=== PATIENT | male | born 1980 | race Caucasian/White ===

== ENCOUNTER 2025-03-27 13:26 | Emergency (ER) | payer SELFPAY ==
[2025-03-27 13:29] VITALS: BP 166/110
--- NOTE | 2025-03-27 15:55 | ED.GENMED ---
History of Present Illness
General
Chief Complaint: Crisis Evaluation
Time Seen by Provider: 03/27/25 14:12
History of Present Illness
History of Present Illness:
44-year-old male with history of depression and hypertension presenting to the emergency department for suicidal ideations. Patient reports for the past few days he has had increasing depressive thoughts, thought about jumping off of a bridge or
lying on the train track to hurt himself. He notes that he has not taken his medications for the past few days including his blood pressure medications. He is on valsartan. Does admit to alcohol abuse, denies drinking today. Denies medical
complaint such as chest pain, difficulty breathing, abdominal pain, headache, visual changes. Denies additional acute medical complaints
Phy Exam
Physical Exam
Physical Exam:
General: Well-appearing, no clinical signs of dehydration, nontoxic and in no acute distress
HEENT: protecting airway
Neck: appears supple
CV: Normal heart rate
Resp: No accessory muscle use, no increased work of breathing
Abd: No distention
Extremities: No deformities, no swelling
Neuro: alert, no focal neurologic deficit
: deferred
Rectal: deferred
Psych: Normal affect
Skin: Intact
Course
Orders/Labs/Results
Orders:
Orders
03/27/25 13:27
1:1 Observation - Suicide/ Violent Behavior As Directed
Crisis Consult Urgent
Reason for Consult: SI
03/27/25 15:40
Ondansetron HCl [Zofran] 4 mg PO NOW STA
Valsartan [Diovan] 80 mg PO NOW STA
03/27/25 16:19
Alcohol Urgent
Basic Metabolic Panel Urgent
Complete Blood Count/With Diff Urgent
Fentanyl, Urine Urgent
Urine Drug Abuse Screen Urgent
Date Specimen was Collected: 03/27/25
Time Specimen was Collected: 15:50
03/27/25 19:02
observation [ED Special Safety Observation] ONCE
Observation level: One to Two
03/27/25 19:41
Lorazepam [Ativan] 1 mg PO NOW STA
03/27/25 19:42
Nicotine Polacrilex [Nicorette] 2 mg PO ONCE ONE
Abnormal Lab Results
03/27/25
16:19
MCV 94.7 H fL
(80.0-94.0)
MCH 32.8 H pg
(27.0-31.0)
Absolute Monos (auto) 0.9 H 10^3/uL
(0.1-0.6)
Monocytes % 9.6 H %
(1.7-9.3)
BUN 8 L mg/dl
(9-20)
U Benzodiazepines Scrn Positive H
(Negative)
U Marijuana (THC) Screen Positive H
(Negative)
03/27/25 16:19
03/27/25 16:19
Vital Signs
Initial and Last Documented VS:
Initial Vital Signs
Temp Pulse Resp BP Pulse Ox
98.4 F 103 22 166/110 98
03/27/25 13:29 03/27/25 13:29 03/27/25 13:29 03/27/25 13:29 03/27/25 13:29
Last Documented Vital Signs
Temp Pulse Resp BP Pulse Ox
98.5 F 77 20 111/82 97
03/27/25 16:03 03/27/25 16:09 03/27/25 16:03 03/27/25 16:09 03/27/25 16:03
MDM/Problems Addressed
MDM/Problems Addressed:
44-year-old male with history of depression, alcoholism, homelessness presenting for suicidal ideations. Vital signs significant for high blood pressure, however patient notes that he has been taking his blood pressure medications.
On exam patient resting comfortably, no acute distress. Patient is admitted to suicidal ideations. However, is looking for help, agreeable. Plan for 201 status. Plan for crisis evaluation. Suspect hypertension from medication noncompliance.
Plan for laboratory analysis. Will administer valsartan.
15:30 -Per crisis, recommending inpatient placement, initiating bed search
20:30 -patient accepted to [facility]. Transportation en route
*Critical Care Note
Total Time (30-74mins, 75-104mins- exclusive of procedures): Not Applicable
ED Attending Note
-
Portions of this chart may have been created with voice recognition software.� Occasional wrong word or��sound alike� substitutions may have occurred due to the inherent limitations of voice recognition software.
Discharge Plan
Departure
Patient Disposition: Psych Facility
Date of Disposition: 03/27/25
Time of Disposition: 19:42
Patient with high blood pressure during this ER visit?: Yes
Condition: Good
Discharge Problem:
Depression with suicidal ideation
Prescriptions:
No Action
venlafaxine [Effexor XR] 150 mg Capsule,Extended Release 24hr
150 mg PO DAILY
valsartan 80 mg Tablet
80 mg PO DAILY
gabapentin 100 mg Capsule
100 mg PO DAILY
Referrals:
Pepe Ochoa MD [Family Provider] -
Interventions
Interventions:
*Risk Screen - Suicide Last Done: 03/27/25 13:27
*General Assessment Last Done: 03/27/25 13:29
*Neglect/Abuse Screening Last Done: 03/27/25 13:29
*ED- Fall Risk Assessment Last Done: 03/27/25 16:03
*ED COVID-19 Vaccine History Last Done: 03/27/25 16:03
ED-Psychological Assessment Last Done: 03/27/25 16:03
Discharge Date and Time
Print Language: GEORGIAN
[2025-03-27 16:03] VITALS: BP 111/81; BMI 41.6
[2025-03-27] MEDS: ZOFRAN 4 MG PO (16:09)
[2025-03-27] MEDS: DIOVAN 80 MG PO (16:09)
[2025-03-27 16:51] LABS: Alcohol None Detected; Blood Urea Nitrogen 8 mg/dl (9-20); Calcium 9.5 mg/dl (8.4-10.2); Carbon Dioxide 25 mmol/L (22-30); Chloride 105 mmol/L (98-107); Estimated Creatinine Clearance > 125 ml/min; Glucose 94 mg/dl (70-99); Sodium 140 mmol/L (135-145); eGFR > 60.00
[2025-03-27 19:30] LABS: Amphetamines Negative (Negative); Barbiturates Negative (Negative); Benzodiazepines Positive (Negative); Buprenorphine Negative (Negative); Cocaine Negative (Negative); Marijuana Positive (Negative); Methadone Negative (Negative); Methamphetamines Negative (Negative); Opiates Negative (Negative); Phencyclidine Negative (Negative); Tricyclic Antidepressants Negative (Negative)
[2025-03-27 19:41] LABS: % Basophils 1.3 % (0-2); % Eosinophils 2.4 % (0-6); % Immature Granulocytes 0.2 % (0-0.5); % Lymphocytes 36.9 % (20.5-51.1); % Monocytes 9.6 % (1.7-9.3); % Neutrophils 49.6 % (42.2-75.2); Absolute Basophils 0.1 10^3/uL (0-0.2); Absolute Eosinophils 0.2 10^3/uL (0-0.7); Absolute Lymphocytes 3.4 10^3/uL (1.2-3.4); Absolute Monocytes 0.9 10^3/uL (0.1-0.6); Absolute Neutrophils 4.5 10^3/uL (1.4-6.5); Hematocrit 46.2 % (39.0-52.0); Mean Corp Hgb Conc. 34.6 g/dL (33.0-37.0); Mean Corpuscular Hgb 32.8 pg (27.0-31.0); Mean Corpuscular Volume 94.7 fL (80.0-94.0); Mean Platelet Volume 9.3 fL (7.4-10.4); Nucleated Red Blood Cells % 0 % (-); Platelet Count 226 10^3/uL (130-400); Red Blood Cell Count 4.88 10^6/uL (4.70-6.10); Red Cell Dist. Width 12.8 % (11.5-14.5); White Blood Cell Count 9.2 10^3/uL (4.8-10.8)
[2025-03-27] MEDS: ATIVAN 1 MG PO (19:52)
[2025-03-27] MEDS: NICORETTE 2 MG PO (19:52)
[2025-03-27 19:54] LABS: Fentanyl, Urine Negative (Negative)
== END 2025-03-27 21:54 ==
LOC: EMR 13:26
PROVIDERS: EMERGENCY PHYSICIAN Student in an Organized Health Care Education/Training Program; FAMILY PHYSICIAN Family Medicine
DX: R45.851 Suicidal ideations (principal); I10 Essential (primary) hypertension; F32.A Depression, unspecified; Z59.00 Homelessness unspecified; F10.20 Alcohol dependence, uncomplicated
CPT/HCPCS: 99285; 80048; 80306; 80307; 82077; 85025